=== PATIENT | male | born 1990 | race African-American/Black ===

== ENCOUNTER 2016-07-29 13:51 | Emergency (ER) | payer OTHER ==
[~2016-07-29] VITALS: Ht 170.2 cm; Wt 108.4 kg
[2016-07-29 13:56] VITALS: BP 116/70
== END 2016-07-29 15:10 | disposition home or self-care (01) ==
LOC: EME 13:51
PROC: 3E0234Z Introduction of Serum, Toxoid and Vaccine into Muscle, Percutaneous Approach (ICD-10-PCS; principal; 2016-07-29)
DX: S41.042A Puncture wound with foreign body of left shoulder, initial encounter (principal); Y35.093A Legal intervention involving other firearm discharge, suspect injured, initial encounter; F17.200 Nicotine dependence, unspecified, uncomplicated
CPT/HCPCS: 99281; 99284